=== PATIENT | female | born 1950 | race Caucasian/White ===

== ENCOUNTER 2017-04-19 20:20 | Emergency (ER) | payer BC ==
[~2017-04-19 20:20] MED LIST: AMB5 PO; AUG875 PO; BEN25 PO; CLARIT10 PO; DOLOPHINE10 MG PO; DOLOPHINE5 MG PO; DSS PO; IBU800 PO; LEXAPRO10 PO; LIOR10 PO; MAX25 PO; MIRALAXPKT PO; NASONEX NAS; NEUR400 PO; NORCO1 TA1 PO; NORCO1 TA2 PO; PCET PO; PR25 PO; PREV30 PO; PRILO PO; REQUIP25 PO; SINGULAIR1 PO; TOPXL100 PO; VICODINTAB PO; ZOVIRAX400 MG PO
== END 2017-04-19 21:34 | disposition home or self-care (01) ==
LOC: ER 20:20
DX: L03.031 Cellulitis of right toe (principal); K21.9 Gastro-esophageal reflux disease without esophagitis; F32.9 Major depressive disorder, single episode, unspecified; F41.9 Anxiety disorder, unspecified; Z88.5 Allergy status to narcotic agent; Z79.891 Long term (current) use of opiate analgesic; Z79.899 Other long term (current) drug therapy
CPT/HCPCS: 73630-RT; 99284